=== PATIENT | male | born 1960 | race Caucasian/White ===

== ENCOUNTER 2018-06-14 13:39 | Emergency (ER) | payer MEDICAID ==
[~2018-06-14] VITALS: Ht 180.3 cm; Wt 70.7 kg
[2018-06-14 13:42] VITALS: BP 109/80
[2018-06-14] MEDS ORDERED: KETOROLAC 30 MG/1 ML ONE (13:56)
[2018-06-14] MEDS ORDERED: KETOROLAC 30 MG/1 ML IM ONE (14:00)
== END 2018-06-14 14:18 | disposition home or self-care (01) ==
LOC: ED 14:12
DX: S76.012A Strain of muscle, fascia and tendon of left hip, initial encounter (principal); M46.1 Sacroiliitis, not elsewhere classified; X58.XXXA Exposure to other specified factors, initial encounter; Y93.89 Activity, other specified; Y92.89 Other specified places as the place of occurrence of the external cause; Y99.8 Other external cause status
CPT/HCPCS: 96372; 99283; J1885

== ENCOUNTER 2019-01-28 15:35 | Emergency (ER) | payer MEDICAID ==
[~2019-01-28] VITALS: Ht 182.9 cm; Wt 75.6 kg
[2019-01-28 16:04] VITALS: BP 136/84
[2019-01-28] MEDS ORDERED: LIDOCAINE-MPF 1%, 5ML INFIL ONE (16:30)
[2019-01-28] MEDS ORDERED: BUPIVACAINE/PF-EPI 0.25% 1:200K SQ ONE (16:30)
[2019-01-28] MEDS ORDERED: LIDOCAINE-MPF 1%, 5ML ONE (16:32)
[2019-01-28] MEDS ORDERED: BUPIVACAINE 0.25% ONE (16:34)
--- NOTE | 2019-01-28 16:47 | NUR ---
Discharge instructions discussed with patient including when to return to emergency department, verbalizes understanding. Prescription provided with instruction for use. Patient ambulates with steady gait to discharge desk in no acute distress.
== END 2019-01-28 16:49 | disposition home or self-care (01) ==
LOC: ED 16:28
DX: K02.9 Dental caries, unspecified (principal); Z72.9 Problem related to lifestyle, unspecified; Z75.9 Unspecified problem related to medical facilities and other health care; Z91.14 Patient's other noncompliance with medication regimen
CPT/HCPCS: 64400; 99284